=== PATIENT | female | born 1965 | race Caucasian/White ===

== ENCOUNTER 2020-01-14 13:38 | Emergency (ER) | payer OTHER ==
[~2020-01-14] VITALS: Ht 170.2 cm; Wt 72.6 kg
[~2020-01-14 13:38] MED LIST: DOXEPIN 10 MG C10 MG; GLYCOPYRROLATE 22 M1; HYDROCODON-ACE1 EAC7
[2020-01-14] MEDS ORDERED: XANAX1 MG PO (15:26)
[2020-01-14] MEDS ORDERED: DESYREL150 MG PO (15:27)
[2020-01-14] MEDS ORDERED: AMBIEN5 MG PO (15:27)
[2020-01-14] MEDS ORDERED: KEFLEX500 M1 PO (15:56)
[2020-01-14 16:21] VITALS: BP 132/81
== END 2020-01-14 16:20 | disposition home or self-care (01) ==
LOC: ER 13:38
DX: S61.210A Laceration without foreign body of right index finger without damage to nail, initial encounter (principal); Z79.899 Other long term (current) drug therapy; W26.8XXA Contact with other sharp object(s), not elsewhere classified, initial encounter; Y93.89 Activity, other specified; Y92.89 Other specified places as the place of occurrence of the external cause; Y99.8 Other external cause status